=== PATIENT | female | born 1990 | race Caucasian/White ===

== ENCOUNTER 2018-10-10 | Emergency (ER) | payer OTHER ==
[2018-10-10 00:19] VITALS: BP 121/87
--- NOTE | 2018-10-10 00:24 | ED Physician Documentation ---
General Adult - HISTORIAN Historian: patient - HPI Stated Complaint: Elevated BP, throbbing head with new medication Chief Complaint: General Adult Onset: hours Timing: better Severity: mild Further Comments: yes (Pt is a 27 yo female from [facility] who was found to have a high bp readings there. Pt was given an NSAID a few hours before the reading was taken. In ER pt was normotensive. Pt has been at [facility] for 21 days for alcohol recovery.) - ROS CONST: no problems EYES/ENT: none CVS/RESP: none GI/: none MS/SKIN/LYMPH: none NEURO/PSYCH: headache (earlier tonight) - PAST HX Past History: other (alcohol abuse) Allergies/Adverse Reactions: Allergies Allergy/AdvReac Type Severity Reaction Status Date / Time red dye Allergy Verified 10/10/18 00:19 Home Medications: Ambulatory Orders Medication Instructions Recorded Lamotrigine [Lamictal] 75 mg PO D 10/10/18 Naltrexone [Naltrexone Base 25 mg PO D 10/10/18 Monohydrate] - SOCIAL HX Smoking History: other (e-cigarettes) - FAMILY HX Family History: No - VITAL SIGNS Vital Signs: Vital Signs Temp Pulse Resp BP Pulse Ox 97.5 F L 95 H 14 121/87 100 10/10/18 00:05 10/10/18 00:05 10/10/18 00:05 10/10/18 00:05 10/10/18 00:05 - REVIEWED ASSESSMENTS Nursing Assessment Reviewed: Yes Vitals Reviewed: Yes Progress - Progress Progress: Pt was normotensive in ER. d/c to [facility]. General Adult Physical Exam - PHYSICAL EXAM GENERAL APPEARANCE: no distress EENT: eye inspection normal, pharynx normal NECK: normal inspection, supple RESPIRATORY: no resp distress, chest non-tender, breath sounds normal CVS: reg rate & rhythm, heart sounds normal ABDOMEN: soft, no organomegaly, normal bowel sounds BACK: normal inspection, no CVA tenderness SKIN: warm/dry, normal color EXTREMITIES: non-tender, normal range of motion, no evidence of injury NEURO: oriented X3, motor nml, sensation nml Discharge Clincal Impression: elevated blood pressure reading Condition: Good Disposition: 01 HOME, SELF-CARE Decision to Admit: NO Decision Time: 00:27
== END 2018-10-10 00:30 | disposition home or self-care (01) ==
LOC: ED
DX: R03.0 Elevated blood-pressure reading, without diagnosis of hypertension (principal)
CPT/HCPCS: 99281